=== PATIENT | female | born 1985 | race Hispanic/Latino ===

== ENCOUNTER 2017-11-13 07:24 | Inpatient (IN) | payer BC ==
[2017-11-13 07:43] VITALS: BMI 33.3
[2017-11-13] MEDS ORDERED: Lactated Ringer's 1,000 ML IV ONE (07:43)
[2017-11-13 09:14] LABS: BASO # 0.1 K/uL (0.0-0.2); BASO % 0.9 % (0.0-2.0); EOS # 0.1 K/uL (0.0-0.7); EOS % 0.9 % (0.0-4.0); LYMPH # 2.1 K/uL (1.0-4.3); LYMPH % 14.8 % (20.0-40.0); MEAN CELL VOLUME 85.7 fl (81.0-99.0); MEAN CORPUSCULAR HEMOGLOBIN 29.3 pg (27.0-31.0); MEAN CORPUSCULAR HGB CONC 34.2 g/dL (33.0-37.0); MEAN PLATELET VOLUME 9.7 fl (7.2-11.7); MONO # 0.7 K/uL (0.0-0.8); MONO % 4.8 % (0.0-10.0); NEUT % 78.6 % (50.0-75.0); NRBC % 0.1 % (0.0-0.0); RBC 4.09 Mil/uL (3.80-5.20); RED CELL DISTRIBUTION WIDTH 14.6 % (11.5-14.5)
--- NOTE | 2017-11-13 11:39 | OBADHP ---
Datetime: 11/13/2017 11:35 Admit Comment, IP Provider: Patient is 2 para 1 estimated gestational age 39 weeks patient p resents to labor and delivery complaining of pelvic pressure discomfort times several days duration. Patient's care unremarkable patient reports good movement no vaginal bleeding or leaka ge of fluid. Patient report reports uterine contractions of mild to moderate severity. Past medical history none Past surgical history none No known drug allergies Social history denies alcohol tobacco use Obstetrical history 1 normal spontaneous vaginal delivery Review of systems patient denies headache chest pain shortness breath palpitations nausea vomiting diarrhea heat or cold intolerance easy bruisability musculoskeletal or neurological complaints Vital signs stable afebrile Physical exam see notes Intrauterine at 39 weeks maternal discomfort cervical dilation Admit to labor and delivery Routine labs External monitor Adequate pelvis Vertex presentation Estimated weight 8to 81/2 pounds Anticipate normal vaginal delivery Pelvic Type - PN: Adequate Extremities - PN: Normal Abdomen - PN: Normal Back - PN: Normal Breast - PN: Not Done Lungs - PN: Normal Heart - PN: Normal Thyroid - PN: Normal Neurologic - PN: Normal HEENT - PN: Normal General - PN: Normal Weight - Estimated: 8 Presentation-Admit: Vertex FHR - Baseline A Provider: 156 Gestation - Est Wks by US: 39.0 Pool Provider: Negative Vital Signs Provider: Reviewed IP Chief Complaint: Uterine contractions; Maternal discomfort NICHD Variability Prov Fetus A: Moderate 6-25bpm NICHD Accel Fetus A IP Provider: [id number] FHR Category Provider Fetus A: Category I NICHD Decel Fetus A IP Provider: None Dilatation, Provider: 3 Effacement, Provider: 90 Station, Provider: -2 Genitourinary Exam: Normal DTRs - PN: Normal IP Adm Impression: Term, intrauterine ; Active labor IP Admit Plan: Admit to unit
[2017-11-13] MEDS: Lactated Ringer's 1,000 ML IV SCH ×2 (12:00→13:50)
[2017-11-13] MEDS ORDERED: Lactated Ringer's 1,000 ML IV SCH ×2 (13:45→23:05)
[2017-11-13] MEDS ORDERED: Fentanyl/Bupivacaine HCl 250 ML EPI ONE (13:46)
[2017-11-13] MEDS ORDERED: Oxytocin 30 UNIT 30 UNITS/500 ML BAG IV ONE ×2 (15:19→19:26)
[2017-11-13] MEDS ORDERED: Oxycodone/Acetaminophen 5/325 mg Tab PO PRN ×2 (19:26→23:05)
[2017-11-13] MEDS ORDERED: Benzocaine/Menthol SPRAY TOP PRN ×4 (19:26→23:05)
--- NOTE | 2017-11-13 19:41 | OBDS ---
DELIVERY PERSONNEL Delivery Doctor: Nabeel Mckinney MD Tire Builder: Margi Wagner RN Resident: Dr Jessica Ramos(OB Fellow) MATERNAL INFORMATION Delivery Anesthesia: Epidural Medications in Delivery: pitocin 30 units Placenta Cultured: No Maternal Complications: None Provider Comments: Delivered live baby girl at 7:03 PM the baby was bulb suctioned on the perineum a nd transferred to the maternal chest. The cord was clamped and cut 3 vessels noted cord blood was obt ained and sent to the lab. The placenta was delivered at 7:07 PM intact, the estimated blood loss was 150 mL. There was a first-degree vaginal laceration which was repaired with 2-0 rapide. Pitocin was infused the cyst and uterine involution. The mother tolerated the procedure well the baby went to the well-baby nursery with Apgars of 9 and 9 weighing 3925 g LABOR SUMMARY No. Babies in Womb: 1 Attempted: No Labor Anesthesia: Epidural LABOR INFORMATION Reason for Induction: Not Applicable Complete Dilatation: 11/13/2017 18:47 Oxytocin: Augmentation Group B Beta Strep: Negative Steroids Given: None Reason Steroids Not Administered: Not Applicable MEMBRANES Membranes Rupture Method: Artificial Rupture of Membranes: 11/13/2017 09:57 Length of Rupture (hrs): 9.10 Amniotic Fluid Color: Clear Amniotic Fluid Amount: Scant Amniotic Fluid Odor: Normal STAGES OF LABOR Stage 2 hrs: 0 Stage 2 min: 16 Stage 3 hrs: 0 Stage 3 min: 4 VAGINAL DELIVERY Episiotomy: None Laceration Extension: Second Degree Laceration Type: Perineal Laceration Repair: Yes Initial Vag Sponge Count: laps=5 with ring and 1 without ring Final Vag Sponge Count: laps=5 with ring and 1 without Initial Vag Sharps Count: 1 Final Vag Sharps Count: 1 Sponge Count Correct: Yes Sharps Count Correct: 1 Count Comment: count correct BABY A INFORMATION Infant Delivery Date/Time: 11/13/2017 19:03 Method of Delivery: Vaginal Born in Route : No : N/A Forceps: N/A Vacuum Extraction: N/A Shoulder Dystocia : No SHOULDER DYSTOCIA BABY A Infant Delivery Date/Time: 11/13/2017 19:03 PRESENTATION/POSITION BABY A Presentation: Cephalic Cephalic Presentation: Vertex Breech Presentation: N/A PLACENTA INFORMATION BABY A Placenta Delivery Time : 11/13/2017 19:07 Placenta Method of Delivery: Spontaneous Placenta Status: Delivered SCORES BABY A Heart Rate 1 min: >100 bpm Resp Effort 1 min: Good Cry Reflex Irritability 1 min: Cough or Sneeze or Pulls Away Muscle Tone 1 min: Active Motion Color 1 min: Body [place], Extremities Blue Resuscitation Effort 1 min: N/A SCORE 1 MIN: 9 Heart Rate 5 min: >100 bpm Resp Effort 5 min: Good Cry Reflex Irritability 5 min: Cough or Sneeze or Pulls Away Muscle Tone 5 min: Active Motion Color 5 min: Body [place], Extremities Blue Resuscitation Effort 5 min: N/A SCORE 5 MIN: 9 INFANT INFORMATION BABY A Gestational Age at Delivery: 39.3 Gestational Status: Term Outcome : Liveborn Infant Condition : Stable Infant Sex: Female IDENTIFICATION/MEDS BABY A ID Band Number: [id number] ID Band Location: Left Leg; Left Arm Vitamin K Given : Not Given Erythromycin Given: Not Given WEIGHT/LENGTH BABY A Infant Birthweight (gms): 3929 Infant Weight (lb): 8 Infant Weight (oz): 11 CORD INFORMATION BABY A No. Cord Vessels: 3 Nuchal Cord : N/A Nuchal Cord Other: n/a True Knot: n/a Infant Cord pH Baby Arterial: n/a Infant Cord pH Baby Venous: n/a Cord Blood Taken: Yes Banking/Donate Info: n/a Suction: Mouth; Nose ASSESSMENT BABY A Infant Complications: None Physical Findings at Delivery: Within Normal Limits Infant Respirations: Appears Normal [place] [employer]am[employer]/ALS Called : No Care By: Kelle/Boone Flores Transferred To: Remains with Mother
[2017-11-14 07:59] LABS: BASO # 0.1 K/uL (0.0-0.2); BASO % 0.8 % (0.0-2.0); EOS # 0.2 K/uL (0.0-0.7); HEMOGLOBIN 12.1 g/dL (12.0-16.0); LYMPH # 3.1 K/uL (1.0-4.3); LYMPH % 17.8 % (20.0-40.0); MEAN CELL VOLUME 86.9 fl (81.0-99.0); MEAN CORPUSCULAR HEMOGLOBIN 29.2 pg (27.0-31.0); MEAN CORPUSCULAR HGB CONC 33.6 g/dL (33.0-37.0); MEAN PLATELET VOLUME 10.2 fl (7.2-11.7); MONO # 0.8 K/uL (0.0-0.8); MONO % 4.8 % (0.0-10.0); NEUT # 13.3 K/uL (1.8-7.0); NEUT % 75.6 % (50.0-75.0); NRBC % 0.3 % (0.0-0.0); RBC 4.15 Mil/uL (3.80-5.20); RED CELL DISTRIBUTION WIDTH 14.7 % (11.5-14.5); WHITE BLOOD COUNT 17.5 K/uL (4.8-10.8)
[2017-11-14] MEDS ORDERED: Influenza Vaccine (5 YR UP)/PF 60 MCG/0.5 ML SYR IM ONE (08:40)
--- NOTE | 2017-11-15 01:18 | OBPPN ---
Datetime: 11/14/2017 13:14 PP Pain Prov: Within normal limits PP Nausea Prov: Denies PP Flatus Prov: Yes PP Breasts Prov: Normal PP Heart Prov: Normal PP Lungs Prov: Normal PP Abdomen/Uterus Prov: Normal PP Lochia Prov: Normal PP Vulva/Perineum Prov: Normal PP CVA Tenderness Prov: Normal PP Extremities Prov: Normal PP Comments Phys Exam Prov: Abdomen soft, nontender, nondistended Uterus firm, below umbilicus Incision clean, dry, intact No deep tenderness bilaterally PP Impression Prov: Normal progression PP Plan Prov: Continue present management PP Progress Note Prov: day #1 status post , patient recovering well Ambulation Regular diet Pain control Anticipate discharge home tomorrow IP PP Procedures: None Vital Signs Provider PP: Reviewed; Within Normal Limits
--- NOTE | 2017-11-15 08:53 | OBDCSUM ---
Datetime: 11/15/2017 08:51 Discharged to, Provider: Home Follow up at, Provider: Flora Thompson Instr Activity: Normal activity Disch Instr Diet: Regular Discharge Instructions, Provider: Routine instructions given Discharge Diagnosis, Provider: Term Delivered Follow up in weeks, Provider: 6 weeks Disch Referrals: None Contraception discussed, Prov: Yes Disch Activity Restrictions: No sexual activity; Nothing in vagina - [place], tampons, douche Contraception after Delivery: Undecided
--- NOTE | 2017-11-15 08:55 | OBPPN ---
Datetime: 11/15/2017 08:52 PP Pain Prov: Within normal limits PP Nausea Prov: Denies PP Flatus Prov: Yes PP Breasts Prov: Not Done PP Heart Prov: Normal PP Lungs Prov: Normal PP Abdomen/Uterus Prov: Normal PP Lochia Prov: Not Done PP Vulva/Perineum Prov: Not Done PP CVA Tenderness Prov: Normal PP Extremities Prov: Normal PP Progress Prov: Normal PP Impression Prov: Normal progression PP Plan Prov: Discharge PP Progress Note Prov: A should cleared for discharge Vital Signs Provider PP: Reviewed
[2017-11-15 21:37] VITALS: BP 119/76; PULSE 106; RESP 16; TEMP 97.9; O2SAT 98
== END 2017-11-15 13:35 | disposition home or self-care (01) | DRG 775 ==
LOC: H.L&D 07:39 → H.OB/GYN 22:50
PROVIDERS: ADMIT Obstetrics & Gynecology Gynecology; ATTEND Obstetrics & Gynecology Gynecology
PROC: 10E0XZZ Delivery of Products of Conception, External Approach (ICD-10-PCS; principal; 2017-11-13)
PROC: 0KQM0ZZ Repair Perineum Muscle, Open Approach (ICD-10-PCS; 2017-11-13)
PROC: 4A1HXCZ Monitoring of Products of Conception, Cardiac Rate, External Approach (ICD-10-PCS; 2017-11-13)
DX: O70.1 Second degree perineal laceration during delivery (principal); Z37.0 Single live birth; Z3A.39 39 weeks gestation of pregnancy